=== PATIENT | male | born 1960 | race Caucasian/White ===

== ENCOUNTER 2021-06-26 16:30 | Emergency (ER) | payer OTHER ==
[2021-06-26] MEDS ORDERED: DEXAMETHASONE 10 MG/ML VIAL PO STA (18:03)
[2021-06-26] MEDS ORDERED: SODIUM CHLORIDE 0.9% 1,000 ML IV STA (18:03)
[2021-06-26] MEDS ORDERED: CHERRY SYRUP 10 ML UDC PO ONE (18:03)
[2021-06-26] MEDS ORDERED: ONDANSETRON 4 MG/2 ML VIAL IVP STA (18:03)
--- NOTE | 2021-06-26 18:05 | ED Physician Documentation ---
History of Present Illness - Stated complaint Stated Complaint: C+ - Chief complaint Chief Complaint: Heent - Additonal information Additional information: 60-year-old male who carries a history of hypertension presents the emergency department for evaluation of cough as well as uncontrolled nausea and vomiting. This gentleman is COVID-19 positive. He tested +1-week ago. However he has had symptoms for 12 days. He is not vaccinated for COVID-19 though his is and she is asymptomatic. Non-smoker. No history of diabetes. He reports that the first week of Covid he had generalized fatigue and myalgias. He thought that that was getting better but for the last 3 days he has been unable to keep anything down due to the vomiting. He is not* vomiting after coughing spells. Review of Systems Constitutional: reports: Chills, Myalgias, Fatigue, Weight Loss (15 pounds). denies: Fever Ears: reports: Reviewed and negative Nose: reports: Rhinorrhea / runny nose, Congestion Throat: reports: Reviewed and negative Cardiac: denies: Chest pain / pressure, Palpitations, Pedal edema, Calf pain Respiratory: reports: Dyspnea, Cough. denies: Hemoptysis, Wheezing GI: reports: Nausea, Vomiting. denies: Abdominal Pain, Diarrhea : reports: Reviewed and negative Skin: reports: Reviewed and negative Musculoskeletal: reports: Reviewed and negative Neurologic: reports: Reviewed and negative PD PAST MEDICAL HISTORY - Present Medications Home Medications: Ambulatory Orders Medication Instructions Recorded Confirmed Albuterol Sulf [Ventolin Hfa 1 - 2 puffs INH Q4HR PRN #1 inhaler 06/26/21 Inhaler] Amox/Clav 875/125 [Augmentin] 1 each PO Q12H #20 tablet 06/26/21 Azithromycin [Zithromax] 250 mg PO UD 5 Days #6 tablet 06/26/21 Benzonatate [Tessalon] 100 mg PO TID PRN #20 cap 06/26/21 Ondansetron Odt [Zofran] 4 mg TL Q6H PRN #10 tablet 06/26/21 PD ED PE NORMAL - General General: Alert and oriented X 3, No acute distress - HEENT HEENT: Atraumatic, Moist mucous membranes - Neck Neck: Supple, no meningeal sign, No adenopathy - Cardiac Cardiac: RRR, No murmur, No gallop - Respiratory Respiratory: No respiratory distress, Clear bilaterally - Abdomen Abdomen: Normal bowel sounds, Soft, Non tender - Back Back: No CVA TTP - Derm Derm: Normal color, Warm and dry, No rash - Extremities Extremities: No deformity, No tenderness to palpate, Normal ROM s pain - Neuro Neuro: Alert and oriented X 3, 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 Eye Opening: Spontaneous Motor: Obeys Commands Verbal: Oriented GCS Score: 15 Results - Vitals Vitals: Vital Signs - 24 hr 06/26/21 06/26/21 18:27 18:58 Temperature 37.9 C Heart Rate 80 80 Respiratory 20 16 Rate Blood Pressure 127/72 O2 Saturation 95 Oxygen O2 Source Room air - Labs Labs: Laboratory Tests 06/26/21 06/26/21 18:19 18:19 WBC 6.3 RBC 5.06 Hgb 15.8 Hct 44.6 MCV 88.1 MCH 31.2 H MCHC 35.4 RDW 11.9 L Plt Count 180 MPV 10.3 Neut # (Auto) 4.5 Lymph # (Auto) 1.3 L [place] # (Auto) 0.4 Eos # (Auto) 0.0 Baso # (Auto) 0.0 Absolute Nucleated RBC 0.00 Nucleated RBC % 0.0 Sodium 134 L Potassium 3.2 L Chloride 95 L Carbon Dioxide 28 Anion Gap 11.0 BUN 21 H Creatinine 1.0 Estimated GFR (MDRD) 76 L Glucose 119 H Calcium 8.8 Total Bilirubin 1.1 H AST 46 H ALT 51 Alkaline Phosphatase 62 Total Protein 7.5 Albumin 3.9 Globulin 3.6 Albumin/Globulin Ratio 1.1 Lipase 33 - Rads (name of study) CXR Radiology: Final report received (Patchy bilateral infiltrates may potentially represent Covid pneumonia) PD MEDICAL DECISION MAKING - ED course Complexity details: reviewed results, re-evaluated patient, considered differential, d/w patient ED course: 60-year-old male presents emergency department for evaluation of nausea vomiting and cough in the setting of COVID-19 infection. Symptoms began 12 days ago when he tested +5 days ago. He is not vaccinated for COVID 19 Chest x-ray is suggestive bilateral infiltrates consistent with a Covid pneumonia however patient is not hypoxic on room air. No tachypnea or respiratory distress noted. Screening labs do not show any leukocytosis. He has been vomiting we do note a modestly low potassium. Patient was given albuterol here in the emergency department with marked improvement in the cough and his reported shortness of air. Due to the duration of symptoms patient is not a candidate for Mab or Regeneron therapy. He will be started on Augmentin and azithromycin for the pneumonia. We have advised that if symptoms are worsening over the next 12 to 24 hours or he develops worsening shortness of air he is to return immediately to the ER for second evaluation. Departure - Departure Disposition: 01 Home, Self Care Clinical Impression: Pneumonia due to COVID-19 virus Condition: Stable Record reviewed to determine appropriate education?: Yes Prescriptions: Albuterol Sulf [Ventolin Hfa Inhaler] 1 - 2 puffs INH Q4HR PRN #1 inhaler PRN Reason: Shortness Of Air/Wheezing Amox/Clav 875/125 [Augmentin] 1 each PO Q12H #20 tablet Benzonatate [Tessalon] 100 mg PO TID PRN #20 cap PRN Reason: Cough Azithromycin [Zithromax] 250 mg PO UD 5 Days #6 tablet Ondansetron Odt [Zofran] 4 mg TL Q6H PRN #10 tablet PRN Reason: Nausea / Vomiting Comments: Td you were seen today in the emergency department for nausea vomiting and cough in the setting of COVID-19 infection. Your oxygen saturation level today is 96%. Your chest x-ray however does show a pneumonia. Unfortunately due to the length of time you've had your symptoms you are not a candidate for Regeneron/antibody therapy. I do feel that you would benefit from beginning antibiotics for your pneumonia. Your first doses have been given tonight in the ER. Please fill the prescription for the Augmentin and azithromycin tomorrow at the pharmacy. I'm also prescribing Tessalon Perles to help with cough as well as albuterol which can help reduce tightness in the chest and cough in the long-term. You were also given a dose of steroid here in the ER tonight which should help. Zofran has been ordered to help with nausea and vomiting. If at any point however you feel that your cough is worsening at home, you have uncontrolled vomiting or shortness of air please return immediately to the ER. All of your prescriptions have been electronically transmitted to the [facility] in [place].
[2021-06-26] MEDS ORDERED: ALBUTEROL 1 PUFF INH STA (18:10)
[2021-06-26 18:23] LABS: BASOPHILS % (AUTO) 0.2 %; HCT - HEMATOCRIT 44.6 % (42.0-52.0); HGB - HEMOGLOBIN 15.8 g/dL (14.0-18.0); LYMPHOCYTES # (AUTO) 1.3 10^3/uL (1.5-3.5); LYMPHOCYTES % (AUTO) 21.3 %; MEAN CORPUSCULAR HEMOGLOBIN 31.2 pg (27.0-31.0); MEAN CORPUSCULAR HGB CONC 35.4 g/dL (32.0-36.0); MEAN CORPUSCULAR VOLUME 88.1 fL (80.0-94.0); MEAN PLATELET VOLUME 10.3 fL (7.4-11.4); MONOCYTES # (AUTO) 0.4 10^3/uL (0.0-1.0); MONOCYTES % (AUTO) 6.2 %; NEUTROPHILS # (AUTO) 4.5 10^3/uL (1.5-6.6); NEUTROPHILS % (AUTO) 72.1 %; PLT - PLATELET COUNT 180 10^3/uL (130-450); RED BLOOD COUNT 5.06 10^6/uL (4.70-6.10); RED CELL DISTRIBUTION WIDTH 11.9 % (12.0-15.0); WHITE BLOOD COUNT 6.3 x10^3/uL (4.8-10.8)
[2021-06-26 18:36] LABS: ALBUMIN 3.9 g/dL (3.2-5.5); ALBUMIN/GLOBULIN RATIO 1.1 (1.0-2.2); BILIRUBIN,TOTAL 1.1 mg/dL (0.2-1.0); CALCIUM 8.8 mg/dL (8.5-10.3); POTASSIUM 3.2 mmol/L (3.5-5.0); TOTAL PROTEIN 7.5 g/dL (6.7-8.2)
--- NOTE | 2021-06-26 18:56 | XRAY Report ---
PROCEDURE: Chest 1 View X-Ray INDICATIONS: chest pain TECHNIQUE: One view of the chest was acquired. COMPARISON: None FINDINGS: Surgical changes and devices: None. Lungs and pleura: No pleural effusions or pneumothorax. Submaximal inspiration. Patchy bilateral int erstitial infiltrates. Consider viral pneumonia. Mediastinum: Mediastinal contours appear normal. Heart size is normal. Bones and chest wall: No suspicious bony lesions. Overlying soft tissues appear unremarkable. IMPRESSION: Patchy bilateral infiltrates may potentially represent Covid pneumonia Reviewed by: Walt Guerrero MD on 06/26/2021 6:55 PM PDT Approved by: Walt Guerrero MD on 06/26/2021 6:55 PM PDT Station ID: [id number]
[2021-06-26] MEDS ORDERED: AMOX/CLAV 875 MG/125 MG TABLET PO STA (19:03)
[2021-06-26] MEDS ORDERED: AZITHROMYCIN 250 MG TABLET PO STA (19:03)
[2021-06-26 20:00] VITALS: BP 129/71
== END 2021-06-26 20:00 | disposition home or self-care (01) ==
LOC: ED 16:30
DX: U07.1 COVID-19 (principal); J12.82 Pneumonia due to coronavirus disease 2019; R11.2 Nausea with vomiting, unspecified; E87.6 Hypokalemia; I10 Essential (primary) hypertension
CPT/HCPCS: 36415; 71045; 80053; 83690; 85025; 94640; 96374; 99284; A9270